=== PATIENT | female | born 1960 | race Caucasian/White ===

== ENCOUNTER 2020-03-28 12:17 | Outpatient (REF) | payer OTHER, SELFPAY ==
[2020-03-28 13:22] LABS: IDNOW Serial# 9DD0AD1C
[2020-03-28 13:26] LABS: COVID-19 Test Positive (Negative)
== END 2020-03-28 12:18 | disposition home or self-care (01) ==
LOC: HO.LAB 12:17
PROVIDERS: Visit Provider Internal Medicine
DX: Z20.822 Contact with and (suspected) exposure to COVID-19 (principal)
CPT/HCPCS: 36415; 87635

== ENCOUNTER 2021-09-23 20:28 | Emergency (ER) | payer OTHER, SELFPAY ==
[2021-09-23 20:33] VITALS: BP 155/72; PULSE 79; RESP 18; TEMP 37; O2SAT 97; BMI 28.1
--- NOTE | 2021-09-23 20:36 | ECG_ITS ---
Test Reason : CP Blood Pressure : / mmHG Vent. Rate : 072 BPM Atrial Rate : 072 BPM P-R Int : 164 ms QRS Dur : 088 ms QT Int : 404 ms P-R-T Axes : 060 033 073 degrees QTc Int : 442 ms Normal sinus rhythm Normal ECG No previous ECGs available Referred By: Generic ED Physician Electronically Signed By:Riley Covington
[2021-09-23 20:54] LABS: MANUAL DIFF FLAG NO
[2021-09-23 21:13] LABS: Alanine Aminotransferase 7 U/L (0-31); Albumin Level 4.6 g/dL (3.5-5.0); Alkaline Phosphatase 59 U/L (39-117); Anion Gap 12 (12-20); Aspartate Amino Transferase 12 U/L (5-31); Bilirubin Total 0.4 mg/dL (0.0-1.0); Blood Urea Nitrogen 15 mg/dL (9-16); Calcium 9.5 mg/dL (8.4-10.2); Carbon Dioxide 28 mmol/L (22-29); Chloride 105 mmol/L (96-108); Creatinine Clr Calc Pharmacy 47.4; Estimated Glomerular Filt Rate 44; Glucose Random 151 mg/dL (60-115); Sodium 141 mmol/L (135-145); Total Protein 7.2 g/dL (6.5-8.0)
[2021-09-23 21:20] LABS: Troponin-I High Sensitivity < 3.5 ng/L (<3.5-17.0)
[2021-09-23 23:27] LABS: Basophils Absolute Auto 0.1 X10*3/uL (0.0-0.2); Basophils Percent Auto 0.7 % (0-2); Eosinophils Absolute Auto 0.2 X10*3/uL (0.0-0.4); Eosinophils Percent Auto 1.6 % (0-4); Hematocrit 40.4 % (37.0-47.0); Hemoglobin 13.4 g/dl (12.0-16.0); Imm Gran Abs Auto 0.04 X10*3/uL (0.00-0.03); Imm Gran Pct Auto 0.4 % (0.0-0.4); Lymphocytes Absolute Auto 2.8 X10*3/uL (1.2-4.9); Lymphocytes Percent Auto 27.4 % (20-40); Mean Corpuscular HGB Conc 33.2 g/dl (31.0-35.0); Mean Corpuscular Hemoglobin 28.9 pg (27.0-33.0); Mean Corpuscular Volume 87.1 fL (80.0-98.0); Mean Platelet Volume 9.5 fL (9.4-12.3); Monocytes Absolute Auto 0.6 X10*3/uL (0.1-1.2); Monocytes Percent Auto 5.8 % (2-11); Neutrophils Absolute Auto 6.6 x10*3/uL (2.0-8.3); Neutrophils Percent Auto 64.1 % (45-73); Platelet Count 201 X10*3/uL (160-400); Red Blood Count 4.64 X10*6/uL (4.20-5.50); Red Cell Distribution Width 14.4 % (11.0-16.0); White Blood Count 10.3 X10*3/uL (4.8-10.8)
--- NOTE | 2021-09-23 23:37 | ED.GENADULT ---
HPI - General Adult General Chief complaint: General Medical Stated complaint: hypertension 194/02 Time Seen by Provider: 09/23/21 23:37 Source: patient Mode of arrival: ambulatory History of Present Illness HPI narrative: 60-year-old female with history of hypertension, smoker who comes in after experiencing a strange sensation at her throat while at work and states that she took her blood pressure and noted that it was very high at approximately 190s/over 100. Patient denied any visual/speech/auditory changes and denies any numbness/weakness/tingling all this happened and denies any chest pain or palpitations. Patient states she is otherwise in good health and denies any recent constitutional symptoms. Related Data Allergies Allergy/AdvReac Type Severity Reaction Status Date / Time mupirocin [From Bactroban] Allergy Hives Verified 09/23/21 20:37 Penicillins [PCN] Allergy Rash Verified 09/23/21 20:37 Sulfa (Sulfonamide Allergy Rash Verified 09/23/21 20:37 Antibiotics) Review of Systems Review of Systems: Pertinent positives and negatives as stated in HPI 10 point review of systems is otherwise negative. PMFSH Past Medical History Source: nursing notes reviewed Social History Social History Advance Directives: No Advance Directives Information Provided: Yes Physical Exam ED Vital Signs: Vital Signs - 24 hr 09/23/21 20:33 Temperature 98.6 F Pulse Rate 79 Respiratory Rate 18 Blood Pressure 155/72 H Pulse Oximetry 97 Oxygen Delivery Method Room Air BMI result Body Mass Index 28.1 VITAL SIGNS: Reviewed. GENERAL: Well developed, well nourished, in no acute distress. 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 No adventitious sounds or accessory muscle use. SpO2<97> CARDIOVASCULAR: Regular rate and rhythm without noted murmurs, no JVD or lower extremity edema. ABDOMEN: Soft, non-tender, non-distended with bowel sounds. MUSCULOSKELETAL: No tenderness, deformities, or effusions noted on gross inspection. EXTREMITIES: No cyanosis, clubbing or edema. SKIN: Inspection of the skin reveals no rashes NEUROLOGIC: Alert and oriented x 4. Strength and sensation to light touch were grossly intact x 4, facial asymmetry, no pronator drift, cranial nerves 2-12 are grossly intact, heel to perez is intact. Course Course Course Narrative: This is a 60-year-old female with history and clinical presentation consistent with hypertension without evidence of cardiopulmonary or neurologic deficit. Review of all investigations negative for acute findings and EKG appears to be nonischemic. 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 Patient's blood pressure has improved significantly. Medical Decision Making Lab Data Result diagrams: 09/23/21 20:46 09/23/21 20:46 Labs: Lab Results 09/23/21 09/23/21 09/23/21 Range/Units 20:46 20:46 20:46 WBC 10.3 (4.8-10.8) X10*3/uL RBC 4.64 (4.20-5.50) X10*6/uL Hgb 13.4 (12.0-16.0) g/dl Hct 40.4 (37.0-47.0) % MCV 87.1 (80.0-98.0) fL MCH 28.9 (27.0-33.0) pg MCHC 33.2 (31.0-35.0) g/dl RDW 14.4 (11.0-16.0) % Plt Count 201 (160-400) X10*3/uL MPV 9.5 (9.4-12.3) fL Immature Gran % (Auto) 0.4 (0.0-0.4) % Neut % (Auto) 64.1 (45-73) % Lymph % (Auto) 27.4 (20-40) % Williamson % (Auto) 5.8 (2-11) % Eos % (Auto) 1.6 (0-4) % Baso % (Auto) 0.7 (0-2) % Lymph # (Auto) 2.8 (1.2-4.9) X10*3/uL Williamson # (Auto) 0.6 (0.1-1.2) X10*3/uL Eos # (Auto) 0.2 (0.0-0.4) X10*3/uL Baso # (Auto) 0.1 (0.0-0.2) X10*3/uL Abs Immat Gran (auto) 0.04 H (0.00-0.03) X10*3/uL Absolute Neuts (auto) 6.6 (2.0-8.3) x10*3/uL Absolute Nucleated RBC 0.000 (0.0-0.012) X10*3/uL Nucleated RBC % (auto) 0.0 (0.0-0.2) /100WBC Sodium 141 (135-145) mmol/L Potassium 4.0 (3.3-5.1) mmol/L Chloride 105 (96-108) mmol/L Carbon Dioxide 28 (22-29) mmol/L Anion Gap 12 (12-20) BUN 15 (9-16) mg/dL Creatinine 1.23 (0.5-1.4) mg/dL Estim Creat Clear Calc 47.4 Estimated GFR 44 Random Glucose 151 H (60-115) mg/dL Calcium 9.5 (8.4-10.2) mg/dL Total Bilirubin 0.4 (0.0-1.0) mg/dL AST 12 (5-31) U/L ALT 7 (0-31) U/L Alkaline Phosphatase 59 (39-117) U/L Troponin I High Sens < 3.5 (<3.5-17.0) ng/L Total Protein 7.2 (6.5-8.0) g/dL Albumin 4.6 (3.5-5.0) g/dL ECG Data Attestation: I personally reviewed and interpreted this ECG as follows: Prior ECG tracings: not available for review Interpretation: NSR, HR-72, no STEMI, WI/QRS/QTC are within normal limits. Discharge Plan Discharge Clinical Impression: Hypertension, CKD (chronic kidney disease) Patient Disposition: Home, Self-Care Additional Instructions: 1. Resume all home medications as prescribed. 2. Recommend that you call the office of your primary care provider on Sunday morning to set up an appointment for re-evaluation and further discussion regarding blood pressure control. Return to the ER for worsening symptoms. Referrals: Ruth Curran MD [Primary Care Provider] -
== END 2021-09-23 23:58 | disposition home or self-care (01) ==
PROVIDERS: Emergency Provider Student in an Organized Health Care Education/Training Program; PCP Family Medicine
DX: I12.9 Hypertensive chronic kidney disease with stage 1 through stage 4 chronic kidney disease, or unspecified chronic kidney disease (principal); N18.9 Chronic kidney disease, unspecified
CPT/HCPCS: 36415; 80053; 84484; 85025; 93005; 99283

== ENCOUNTER → 2021-12-29 12:09 | Outpatient (RCR) | payer OTHER, SELFPAY ==
[2020-01-23 08:28] LABS: COVID-19 Test Negative (Negative)
[2020-01-29 10:09] LABS: COVID-19 Test Negative (Negative)
[2020-02-04 07:58] LABS: COVID-19 Test Negative (Negative); IDNOW Serial# 55D5AD1C
[2020-02-09 08:12] LABS: COVID-19 Test Negative (Negative); IDNOW Serial# 55D5AD1C
[2020-02-14 08:32] LABS: COVID-19 Test Negative (Negative); IDNOW Serial# 55D5AD1C
[2020-02-24 08:55] LABS: SARS-COV-2 PCR UMBRL Not Detected
[2020-02-26 16:57] LABS: COVID-19 Test Negative (Negative)
[2020-03-08 09:49] LABS: SARS-COV-2 PCR UMBRL Not Detected
[2020-03-11 14:21] LABS: COVID-19 Test Negative (Negative)
[2020-03-18 09:41] LABS: SARS-COV-2 PCR UMBRL Not Detected
[2020-03-25 13:29] LABS: SARS-COV-2 PCR UMBRL Not Detected
== END | disposition home or self-care (01) ==
LOC: HO.EMPCOV 01-23 07:29
PROVIDERS: Visit Provider Internal Medicine
DX: Z20.828 Contact with and (suspected) exposure to other viral communicable diseases (principal)
CPT/HCPCS: 36415; 87635; C9803; U0003